=== PATIENT | male | born 1960 | race Hispanic/Latino ===

== ENCOUNTER 2022-05-01 08:48 | Inpatient (IN) | payer OTHER, SELFPAY ==
[2022-05-01] MEDS ORDERED: Rocuronium Bromide 10 MG/ML (10ML VIAL) ONE ×2 (08:51→11:39)
[2022-05-01] MEDS ORDERED: EPINEPHrine 1 MG/10 ML Abboject SYRINGE ONE ×3 (08:51→23:39)
[2022-05-01] MEDS ORDERED: hydrALAZINE 20 MG/ML VIAL SLOW IVP PRN (09:17)
[2022-05-01] MEDS ORDERED: TETANUS, DIPHTHERIA TOX,ADULT (TDVAX) 0.5 ML VIAL IM ONE (09:17)
[2022-05-01 09:21] LABS: Hemoglobin 15.5 g/dL (14.0-18.0); Mean Corpuscular HGB CONC 31.8 g/dL (32.0-36.0); Mean Corpuscular Hemoglobin 27.5 pg (27.0-31.0); Mean Corpuscular Volume 86.5 fL (78.0-98.0); Mean Platelet Volume 9.1 fL (7.4-10.4); Platelet Count 426 thou/uL (130-400); RBC Distribution Width 20.4 % (11.5-14.5); Red Blood Cell (RBC) Count 5.63 mill/uL (4.70-6.10)
[2022-05-01] MEDS ORDERED: Lidocaine 1% (PF) 30 ML VIAL ONE ×2 (09:27→16:20)
[2022-05-01] MEDS ORDERED: Heparin 10,000 UNITS/ 10 ML VIAL ONE (09:27)
[2022-05-01 09:29] LABS: INR-International Normal Ratio 1.4; PTT 46.5 sec (22.9-36.1); Prothrombin Time 17.6 sec (12.0-14.7)
[2022-05-01] MEDS ORDERED: Acetaminophen 325 MG TAB PO SCH (09:30)
[2022-05-01] MEDS ORDERED: Calcium Chloride 1 GM/10 ML Abboject SYRINGE ONE ×2 (09:33→09:34)
[2022-05-01] MEDS ORDERED: Ondansetron PF 4 MG/2 ML Vial ONE (09:37)
[2022-05-01 09:42] LABS: ALT (SGPT) 175 U/L (8-55); AST (SGOT) 259 U/L (5-34); Acetaminophen Less than 10.0 mcg/mL (10.0-30.0); Albumin 3.7 g/dL (3.4-4.8); Alcohol Less than 10 mg/dL (Less than 10); Alkaline Phosphatase 107 U/L (40-110); Anion Gap 14 mmol/L (10-20); BUN (Urea Nitrogen) 12 mg/dL (8.4-25.7); Bilirubin, Total 0.6 mg/dL (0.2-1.2); CK (CPK) 307 U/L (30-200); Calc. Creatinine Clearance 0 mL/min (70-130); Calcium 8.8 mg/dL (7.8-10.44); Carbon Dioxide 18 mmol/L (23-31); Chloride 108 mmol/L (98-107); Estimated GFR 84; Globulin 2.3 g/dL (2.4-3.5); Glucose 135 mg/dL (80-115); Potassium 3.4 mmol/L (3.5-5.1); Salicylate Less than 8.0 mg/dL (15.0-30.0); Sodium 137 mmol/L (136-145)
[2022-05-01 09:55] LABS: Bilirubin Negative (Negative); Blood, Urine 3+ (Negative); Clarity Clear (Clear); Glucose, Urine (Dipstick) Normal (Negative); Ketone, Urine Negative (Negative); Leukocyte Negative Leu/uL (Negative); Nitrite Negative (Negative); Protein, Urine (Dipstick) Negative (Neg-Trace); RBC/HPF Greater than 50 HPF (0-3); Specific Gravity, Urine 1.016 (1.002-1.036); Squamous Epithelial 0-3 HPF (0-3); Urobilinogen Normal mg/dL (Less than 2); pH, Urine 5.5 (5.0-9.0)
[2022-05-01 09:57] LABS: Bacteria/HPF 1+ HPF (None Seen); Sperm/HPF 2+ HPF (None Seen)
[2022-05-01 10:00] LABS: Amphetamine Not Detected (NotDetected); Barbiturates Screen Not Detected (NotDetected); Benzodiazepine Screen Not Detected (NotDetected); Cocaine Metabolite Screen Not Detected (NotDetected); Methadone Not Detected (NotDetected); Methamphetamine Not Detected (NotDetected); Opiate Screen Not Detected (NotDetected); Oxycodone Screen Not Detected (NotDetected); Phencyclidine (PCP) Not Detected (NotDetected); THC/Cannabinoid Screen Not Detected (NotDetected); Tricyclic Screen Not Detected (NotDetected)
[2022-05-01 10:24] LABS: Band 20 % (5-11); Eosinophils 8 % (0-10); Lymphocytes 34 % (21-51); MDiff Complete? YES; Metamyelocyte 4 % (0-0); Monocytes 2 % (0-10); Myelocyte 1 % (0-0); Neutrophil 24 % (42-75); Nucleated RBC 6 % (0); Platelet Morphology Comment Appears Increased; Polychromasia SLIGHT = 2-3 cells (100X) (0-2/hpf); Reactive Lymphocytes 4 % (0-10)
[2022-05-01] MEDS ORDERED: Midazolam HCl 2 mg/2 ml Vial ONE ×2 (10:36→23:26)
[2022-05-01] MEDS ORDERED: FENTANYL 500 MCG/10 ML VIAL 2,000 MCG in Sodium Chloride 0.9% 60 ML IV PRN (10:37)
[2022-05-01] MEDS ORDERED: Sodium Bicarb 50 MEQ/50 ML Abboject 8.4% SYRINGE IVP SCH (10:45)
[2022-05-01] MEDS ORDERED: Fentanyl 100 MCG/2 ML VIAL ONE (10:59)
[2022-05-01] MEDS ORDERED: Dexmedetomidine In 0.9 % NaCl 100 ML IVPB SCH (11:00)
[2022-05-01] MEDS ORDERED: Heparin 10,000 UNITS/1 ML VIAL 30,000 UNITS in Sodium Chloride 0.9% 1,000 ML FS SCH (11:15)
[2022-05-01] MEDS ORDERED: Phenylephrine 10 MG/ML VIAL ONE (11:28)
[2022-05-01] MEDS ORDERED: Fentanyl BOLUS 250 ML IVPB PRN (11:30)
[2022-05-01] MEDS ORDERED: Iopamidol-370 76% 500 ML 1 ML ONE (11:30)
[2022-05-01] MEDS ORDERED: DISCONTINUE PREVIOUS NARCOTIC PAIN MEDICATIONS AND BENZODIAZEPINES FS SCH (11:30)
[2022-05-01] MEDS ORDERED: Sodium Bicarb 50 MEQ/50 ML VIAL IVP SCH (11:30)
[2022-05-01] MEDS ORDERED: Midazolam HCl 5 mg/5 ml Vial ONE (11:35)
[2022-05-01 11:37] LABS: Lactic Acid 4.9 mmol/L (0.5-2.2)
[2022-05-01 11:49] LABS: Mean Corpuscular HGB CONC 32.3 g/dL (32.0-36.0); Mean Corpuscular Hemoglobin 29.3 pg (27.0-31.0); Mean Corpuscular Volume 90.7 fL (78.0-98.0); Platelet Count 326 thou/uL (130-400); RBC Distribution Width 15.9 % (11.5-14.5); Red Blood Cell (RBC) Count 3.74 mill/uL (4.70-6.10); White Blood Cell (WBC) Count 21.5 thou/uL (4.8-10.8)
[2022-05-01 11:51] LABS: INR-International Normal Ratio 1.7
[2022-05-01 11:52] LABS: PTT 62.6 sec (22.9-36.1)
[2022-05-01 11:53] LABS: Anion Gap 15 mmol/L (10-20); BUN (Urea Nitrogen) 13 mg/dL (8.4-25.7); Calc. Creatinine Clearance 0 mL/min (70-130); Calcium 10.9 mg/dL (7.8-10.44); Carbon Dioxide 19 mmol/L (23-31); Chloride 109 mmol/L (98-107); Estimated GFR 66; Glucose 315 mg/dL (80-115); Magnesium 1.9 mg/dL (1.6-2.6); Phosphorus 7.3 mg/dL (2.3-4.7); Potassium 3.6 mmol/L (3.5-5.1); Sodium 139 mmol/L (136-145)
[2022-05-01] MEDS ORDERED: Iopamidol 370 76% 50 ML VIAL FS ONE ×2 (11:57)
[2022-05-01] MEDS ORDERED: Norepinephrine 4 MG/4 ML VIAL ONE (12:04)
[2022-05-01] MEDS ORDERED: fentaNYL Citrate/PF 100 MCG/2 ML SYRINGE ONE (12:04)
[2022-05-01 12:23] LABS: Band 33 % (5-11); Burr Cells SLIGHT = 2-5 cells (100X) (0-1/hpf); Eosinophils 2 % (0-10); Giant Platelets SLIGHT; Lymphocytes 27 % (21-51); MDiff Complete? YES; Metamyelocyte 4 % (0-0); Monocytes 1 % (0-10); Myelocyte 4 % (0-0); Neutrophil 27 % (42-75); Nucleated RBC 14 % (0); Platelet Morphology Comment Appears Adequate; Polychromasia MODERATE = 3-4 cells (100X) (0-2/hpf)
[2022-05-01 13:57] LABS: Base Excess (BEa) -6.2 mEq/L (-2.0 to +3.0); CO2 Tension 48.1 mmHg (35.0-45.0); Calcium, Ionized (arterial) 1.31 mmol/L (1.12-1.30); Carboxyhemoglobin (COHb) 1.3 gm% (0.0-3.0); Hemoglobin (Hb) 13.9 g/dL (14.0-18.0); O2 Tension (PaO2), arterial 489.1 mmHg (> 80.0); Potassium - ABG Lab 3.53 mmol/L (3.70-5.30); pH, Arterial 7.26 (7.35-7.45)
[2022-05-01 13:59] LABS: ALV-art Gradient 163.775 mmHg (0-20); Puncture Site Arterial Line
[2022-05-01 14:00] LABS: Actual Bicarbonate (HCO3a) 18.3 mEq/L (22-28); Base Excess (BEa) -11.5 mEq/L (-2.0 to +3.0); Calcium, Ionized (arterial) 1.12 mmol/L (1.12-1.30); Carboxyhemoglobin (COHb) 0.1 gm% (0.0-3.0); Hemoglobin (Hb) 11.4 g/dL (14.0-18.0); O2 Tension (PaO2), arterial 361.3 mmHg (> 80.0); Potassium - ABG Lab 4.57 mmol/L (3.70-5.30)
[2022-05-01 14:01] LABS: CO2 Tension 60.2 mmHg (35.0-45.0)
[2022-05-01 14:18] LABS: Lactic Acid 3.9 mmol/L (0.5-2.2)
[2022-05-01 14:21] LABS: INR-International Normal Ratio 1.5; Prothrombin Time 18.3 sec (12.0-14.7)
[2022-05-01 14:22] LABS: PTT 50.1 sec (22.9-36.1)
[2022-05-01 14:30] LABS: ALT (SGPT) 82 U/L (8-55); AST (SGOT) 144 U/L (5-34); Albumin 2.8 g/dL (3.4-4.8); Alkaline Phosphatase 108 U/L (40-110); Anion Gap 13 mmol/L (10-20); BUN (Urea Nitrogen) 13 mg/dL (8.4-25.7); Bilirubin, Direct 0.2 mg/dL (0.1-0.3); Bilirubin, Total 0.5 mg/dL (0.2-1.2); CK (CPK) 594 U/L (30-200); Calc. Creatinine Clearance 0 mL/min (70-130); Calcium 9.6 mg/dL (7.8-10.44); Carbon Dioxide 20 mmol/L (23-31); Chloride 112 mmol/L (98-107); Estimated GFR 76; Glucose 172 mg/dL (80-115); Magnesium 1.8 mg/dL (1.6-2.6); Phosphorus 5.2 mg/dL (2.3-4.7); Potassium 3.5 mmol/L (3.5-5.1); Protein, Total 4.6 g/dL (5.8-8.1); Sodium 141 mmol/L (136-145)
[2022-05-01 14:53] LABS: Band 15 % (5-11); Eosinophils 5 % (0-10); Hemoglobin 13.6 g/dL (14.0-18.0); Lymphocytes 14 % (21-51); MDiff Complete? YES; Mean Corpuscular HGB CONC 33.5 g/dL (32.0-36.0); Mean Corpuscular Hemoglobin 29.5 pg (27.0-31.0); Mean Corpuscular Volume 88.2 fL (78.0-98.0); Mean Platelet Volume 8.6 fL (7.4-10.4); Monocytes 4 % (0-10); Neutrophil 54 % (42-75); Nucleated RBC 19 % (0); Platelet Count 247 thou/uL (130-400); Platelet Morphology Comment Appears Adequate; Polychromasia SLIGHT = 2-3 cells (100X) (0-2/hpf); RBC Distribution Width 16.6 % (11.5-14.5); Reactive Lymphocytes 6 % (0-10); White Blood Cell (WBC) Count 20.9 thou/uL (4.8-10.8)
[2022-05-01 16:17] LABS: Base Excess (BEa) -9.2 mEq/L (-2.0 to +3.0); CO2 Tension 49.5 mmHg (35.0-45.0); Calcium, Ionized (arterial) 1.29 mmol/L (1.12-1.30); Carboxyhemoglobin (COHb) 1.1 gm% (0.0-3.0); Hemoglobin (Hb) 15.2 g/dL (14.0-18.0); O2 Tension (PaO2), arterial 121.9 mmHg (> 80.0); Potassium - ABG Lab 3.79 mmol/L (3.70-5.30)
[2022-05-01 16:18] LABS: ALV-art Gradient 101.425 mmHg (0-20); Puncture Site Arterial Line
[2022-05-01] MEDS ORDERED: Albumin 5% 500 ML ONE (16:27)
[2022-05-01] MEDS ORDERED: NOREPINEPHRINE 8 MG/250 ML-D5W 250 ML ONE (16:30)
[2022-05-01] MEDS ORDERED: Sodium Chloride 0.9% 1,000 ML IV SCH (16:30)
[2022-05-01] MEDS: Fentanyl CADD 100 ML IV SCH (16:44)
[2022-05-01] MEDS ORDERED: Hydrocortisone Sod Succ/PF 100 mg/2 ml Vial IVP SCH ×3 (17:00→22:00)
[2022-05-01 17:13] LABS: Hemoglobin 13.9 g/dL (14.0-18.0); Mean Corpuscular Hemoglobin 29.2 pg (27.0-31.0); Mean Corpuscular Volume 88.4 fL (78.0-98.0); Mean Platelet Volume 9.9 fL (7.4-10.4); Platelet Count 218 thou/uL (130-400); RBC Distribution Width 17.8 % (11.5-14.5); Red Blood Cell (RBC) Count 4.74 mill/uL (4.70-6.10)
[2022-05-01 17:21] LABS: Band 13 % (5-11); Eosinophils 6 % (0-10); Lymphocytes 11 % (21-51); MDiff Complete? YES; Monocytes 2 % (0-10); Neutrophil 60 % (42-75); Nucleated RBC 32 % (0); Ovalocytes SLIGHT = 2-5 cells (100X) (0-1/hpf); Platelet Morphology Comment Appears Adequate; Polychromasia SLIGHT = 2-3 cells (100X) (0-2/hpf); Reactive Lymphocytes 6 % (0-10); White Blood Cell (WBC) Count 18.6 thou/uL (4.8-10.8)
[2022-05-01] MEDS: Sodium Chloride 0.9% 1,000 ML IV SCH ×2 (19:00→22:11)
[2022-05-01 19:17] LABS: Lactic Acid 4.8 mmol/L (0.5-2.2)
[2022-05-01 19:19] LABS: Anion Gap 17 mmol/L (10-20); BUN (Urea Nitrogen) 15 mg/dL (8.4-25.7); Calc. Creatinine Clearance 0 mL/min (70-130); Calcium 8.5 mg/dL (7.8-10.44); Carbon Dioxide 17 mmol/L (23-31); Chloride 114 mmol/L (98-107); Estimated GFR 52; Glucose 140 mg/dL (80-115); Magnesium 1.7 mg/dL (1.6-2.6); PTT 37.5 sec (22.9-36.1); Phosphorus 4.9 mg/dL (2.3-4.7); Potassium 3.7 mmol/L (3.5-5.1); Sodium 144 mmol/L (136-145)
[2022-05-01] MEDS ORDERED: Dextrose 50% Abboject 50 ML SYRINGE SLOW IVP PRN (19:25)
[2022-05-01] MEDS ORDERED: Insulin Regular 300 UNITS/3 ML VIAL SC PRN (19:25)
[2022-05-01] MEDS ORDERED: Dextrose 5% in Water 1,000 ML IV PRN (19:25)
[2022-05-01 19:31] LABS: INR-International Normal Ratio 1.5; Prothrombin Time 18.8 sec (12.0-14.7)
[2022-05-01] MEDS ORDERED: Potassium Chloride 20 MEQ in Premix Bag 1 BAG IVPB SCH (20:00)
[2022-05-01] MEDS ORDERED: Magnesium 2 GM/50 ML(in water) 2 GM in Premix Bag 1 BAG IVPB SCH (20:00)
[2022-05-01 20:06] LABS: Actual Bicarbonate (HCO3a) 16.8 mEq/L (22-28); Base Excess (BEa) -8.9 mEq/L (-2.0 to +3.0); CO2 Tension 35.1 mmHg (35.0-45.0); Calcium, Ionized (arterial) 1.13 mmol/L (1.12-1.30); Carboxyhemoglobin (COHb) 0.3 gm% (0.0-3.0); Hemoglobin (Hb) 10.2 g/dL (14.0-18.0); O2 Tension (PaO2), arterial 150.1 mmHg (> 80.0)
[2022-05-01 20:10] LABS: ALV-art Gradient 91.225 mmHg (0-20); Puncture Site ALINE
[2022-05-01] MEDS ORDERED: Lactated Ringer's 1,000 ML IV SCH ×2 (20:15→23:30)
[2022-05-01 20:58] LABS: Band 21 % (5-11); Eosinophils 8 % (0-10); Hemoglobin 9.9 g/dL (14.0-18.0); Lymphocytes 11 % (21-51); MDiff Complete? YES; Mean Corpuscular HGB CONC 32.4 g/dL (32.0-36.0); Mean Corpuscular Hemoglobin 28.5 pg (27.0-31.0); Mean Platelet Volume 9.8 fL (7.4-10.4); Monocytes 5 % (0-10); Myelocyte 1 % (0-0); Neutrophil 44 % (42-75); Nucleated RBC 42 % (0); Ovalocytes SLIGHT = 2-5 cells (100X) (0-1/hpf); Platelet Count 200 thou/uL (130-400); Platelet Morphology Comment Appears Adequate; RBC Distribution Width 17.1 % (11.5-14.5); Reactive Lymphocytes 8 % (0-10); Red Blood Cell (RBC) Count 3.48 mill/uL (4.70-6.10); White Blood Cell (WBC) Count 16.6 thou/uL (4.8-10.8)
[2022-05-01] MEDS: Famotidine/PF 20 mg/2ml Vial SLOW IVP SCH (21:14)
[2022-05-01 22:11] LABS: SARS-CoV-2 NAA Rapid Test Not Detected (NotDetected)
[2022-05-01] MEDS: NOREPINEPHRINE 8 MG/250 ML-D5W 250 ML IVPB SCH (22:12)
[2022-05-01] MEDS ORDERED: Sodium Bicarb 50 MEQ/50 ML VIAL ONE (23:38)
[2022-05-01 23:41] LABS: Actual Bicarbonate (HCO3a) 14.7 mEq/L (22-28); Base Excess (BEa) -13.1 mEq/L (-2.0 to +3.0); CO2 Tension 43.3 mmHg (35.0-45.0); Calcium, Ionized (arterial) 1.13 mmol/L (1.12-1.30); Carboxyhemoglobin (COHb) 0.2 gm% (0.0-3.0); Hemoglobin (Hb) 6.7 g/dL (14.0-18.0); O2 Tension (PaO2), arterial 307.5 mmHg (> 80.0); Potassium - ABG Lab 5.05 mmol/L (3.70-5.30)
[2022-05-01] MEDS ORDERED: Midazolam HCl 2 mg/2 ml Vial IVP SCH (23:45)
[2022-05-01 23:52] LABS: ALV-art Gradient 351.375 mmHg (0-20); Puncture Site ALINE; pH, Arterial 7.15 (7.35-7.45)
[2022-05-01] MEDS ORDERED: EPINEPHrine 4 MG in Dextrose 5% in Water 250 ML IV SCH (23:59)
[2022-05-02 00:13] LABS: Hemoglobin 7.5 g/dL (14.0-18.0); Mean Corpuscular HGB CONC 32.7 g/dL (32.0-36.0); Mean Corpuscular Hemoglobin 29.6 pg (27.0-31.0); Mean Corpuscular Volume 90.3 fL (78.0-98.0); Mean Platelet Volume 10.5 fL (7.4-10.4); Platelet Count 121 thou/uL (130-400); RBC Distribution Width 15.1 % (11.5-14.5); Red Blood Cell (RBC) Count 2.55 mill/uL (4.70-6.10)
[2022-05-02 00:24] LABS: INR-International Normal Ratio 1.9; Prothrombin Time 22.3 sec (12.0-14.7)
[2022-05-02] MEDS ORDERED: Calcium Chloride 1 GM/10 ML Abboject SYRINGE ONE ×2 (00:25→00:51)
[2022-05-02] MEDS ORDERED: Rocuronium Bromide 10 MG/ML (10ML VIAL) ONE (00:25)
[2022-05-02 00:36] LABS: Band 26 % (5-11); Differential Comment Blast-Like Cell(s); Eosinophils 7 % (0-10); Lymphocytes 6 % (21-51); MDiff Complete? YES; Monocytes 2 % (0-10); Myelocyte 2 % (0-0); Neutrophil 49 % (42-75); Nucleated RBC 35 % (0); Reactive Lymphocytes 6 % (0-10); Reflex for Review?? YES; White Blood Cell (WBC) Count 14.4 thou/uL (4.8-10.8)
[2022-05-02] MEDS ORDERED: Sodium Bicarb 50 MEQ/50 ML VIAL ONE (00:45)
[2022-05-02] MEDS: Hydrocortisone Sod Succ/PF 100 mg/2 ml Vial IVP SCH ×5 (01:45→23:06)
[2022-05-02 01:46] LABS: Lactic Acid 9.5 mmol/L (0.5-2.2)
[2022-05-02 01:48] LABS: ALT (SGPT) 78 U/L (8-55); AST (SGOT) 137 U/L (5-34); Albumin 2.2 g/dL (3.4-4.8); Alkaline Phosphatase 41 U/L (40-110); Anion Gap 19 mmol/L (10-20); BUN (Urea Nitrogen) 18 mg/dL (8.4-25.7); Bilirubin, Total 0.4 mg/dL (0.2-1.2); Calc. Creatinine Clearance 0 mL/min (70-130); Calcium 7.2 mg/dL (7.8-10.44); Carbon Dioxide 17 mmol/L (23-31); Chloride 113 mmol/L (98-107); Estimated GFR 42; Globulin 0.9 g/dL (2.4-3.5); Glucose 169 mg/dL (80-115); Magnesium 1.9 mg/dL (1.6-2.6); Phosphorus 6.2 mg/dL (2.3-4.7); Protein, Total 3.1 g/dL (5.8-8.1); Sodium 144 mmol/L (136-145)
[2022-05-02] MEDS ORDERED: Lidocaine 1% (PF) 30 ML VIAL ONE (02:36)
[2022-05-02] MEDS ORDERED: Heparin 10,000 UNITS/ 10 ML VIAL ONE (02:36)
[2022-05-02] MEDS ORDERED: Midazolam HCl 2 mg/2 ml Vial ONE (03:08)
[2022-05-02] MEDS ORDERED: Fentanyl 100 MCG/2 ML VIAL ONE (03:08)
[2022-05-02 04:35] LABS: Hemoglobin 9.7 g/dL (14.0-18.0); Mean Corpuscular HGB CONC 32.8 g/dL (32.0-36.0); Mean Corpuscular Hemoglobin 28.8 pg (27.0-31.0); Mean Corpuscular Volume 87.9 fL (78.0-98.0); Mean Platelet Volume 9.7 fL (7.4-10.4); Platelet Count 135 thou/uL (130-400); RBC Distribution Width 15.6 % (11.5-14.5); Red Blood Cell (RBC) Count 3.35 mill/uL (4.70-6.10); White Blood Cell (WBC) Count 11.7 thou/uL (4.8-10.8)
[2022-05-02 04:42] LABS: INR-International Normal Ratio 1.5
[2022-05-02 04:43] LABS: PTT 40.5 sec (22.9-36.1)
[2022-05-02 04:53] LABS: CK (CPK) 1682 U/L (30-200); Phosphorus 6.1 mg/dL (2.3-4.7)
[2022-05-02 04:54] LABS: Lactic Acid 4.8 mmol/L (0.5-2.2)
[2022-05-02 04:55] LABS: ALT (SGPT) 142 U/L (8-55); AST (SGOT) 254 U/L (5-34); Albumin 2.7 g/dL (3.4-4.8); Alkaline Phosphatase 45 U/L (40-110); Bilirubin, Direct 0.3 mg/dL (0.1-0.3); Bilirubin, Total 0.5 mg/dL (0.2-1.2); Protein, Total 4.2 g/dL (5.8-8.1)
[2022-05-02 04:58] LABS: Anion Gap 15 mmol/L (10-20); BUN (Urea Nitrogen) 18 mg/dL (8.4-25.7); Calc. Creatinine Clearance 0 mL/min (70-130); Calcium 8.4 mg/dL (7.8-10.44); Carbon Dioxide 20 mmol/L (23-31); Chloride 113 mmol/L (98-107); Estimated GFR 43; Glucose 152 mg/dL (80-115); Magnesium 1.9 mg/dL (1.6-2.6); Potassium 4.7 mmol/L (3.5-5.1); Sodium 143 mmol/L (136-145)
[2022-05-02 05:18] LABS: Band 46 % (5-11); Eosinophils 4 % (0-10); Large Platelets SLIGHT; Lymphocytes 6 % (21-51); MDiff Complete? YES; Metamyelocyte 1 % (0-0); Monocytes 1 % (0-10); Myelocyte 2 % (0-0); Neutrophil 40 % (42-75); Nucleated RBC 33 % (0); Platelet Morphology Comment Appears Adequate
[2022-05-02 07:18] LABS: Actual Bicarbonate (HCO3a) 22.6 mEq/L (22-28); Base Excess (BEa) -2.3 mEq/L (-2.0 to +3.0); CO2 Tension 39.3 mmHg (35.0-45.0); Calcium, Ionized (arterial) 1.16 mmol/L (1.12-1.30); Carboxyhemoglobin (COHb) 0.3 gm% (0.0-3.0); Hemoglobin (Hb) 10.6 g/dL (14.0-18.0); O2 Tension (PaO2), arterial 352.3 mmHg (> 80.0); Potassium - ABG Lab 4.52 mmol/L (3.70-5.30); pH, Arterial 7.38 (7.35-7.45)
[2022-05-02 07:21] LABS: ALV-art Gradient 311.575 mmHg (0-20); Puncture Site Arterial Line
[2022-05-02] MEDS: Sodium Chloride 0.9% 1,000 ML IV SCH (08:17)
[2022-05-02] MEDS ORDERED: Pantoprazole 40 MG VIAL IVP SCH (09:00)
[2022-05-02] MEDS: Famotidine/PF 20 mg/2ml Vial SLOW IVP SCH (09:50)
[2022-05-02] MEDS: Sodium Bicarbonate 150 MEQ in Dextrose 5% in Water 1,000 ML IV SCH ×2 (10:00→20:52)
[2022-05-02] MEDS ORDERED: Piperacillin/Tazobactam 3.375 GM in Sodium Chloride 0.9% 100 ML IVPB SCH (10:00)
[2022-05-02 10:15] LABS: INR-International Normal Ratio 1.4; PTT 35.5 sec (22.9-36.1); Prothrombin Time 17.3 sec (12.0-14.7)
[2022-05-02 10:18] LABS: Lactic Acid 2.3 mmol/L (0.5-2.2)
[2022-05-02 10:35] LABS: Anion Gap 14 mmol/L (10-20); BUN (Urea Nitrogen) 22 mg/dL (8.4-25.7); Calc. Creatinine Clearance 0 mL/min (70-130); Carbon Dioxide 21 mmol/L (23-31); Chloride 113 mmol/L (98-107); Estimated GFR 42; Glucose 109 mg/dL (80-115); Magnesium 1.8 mg/dL (1.6-2.6); Phosphorus 4.5 mg/dL (2.3-4.7); Potassium 4.7 mmol/L (3.5-5.1); Sodium 143 mmol/L (136-145)
[2022-05-02 10:42] LABS: Hemoglobin 9.7 g/dL (14.0-18.0); Mean Corpuscular HGB CONC 32.8 g/dL (32.0-36.0); Mean Corpuscular Hemoglobin 28.8 pg (27.0-31.0); Mean Corpuscular Volume 87.8 fL (78.0-98.0); Mean Platelet Volume 10.4 fL (7.4-10.4); Platelet Count 187 thou/uL (130-400); RBC Distribution Width 15.7 % (11.5-14.5); Red Blood Cell (RBC) Count 3.37 mill/uL (4.70-6.10); White Blood Cell (WBC) Count 9.3 thou/uL (4.8-10.8)
[2022-05-02 10:43] LABS: Band 63 % (5-11); Basophilic Stippling SLIGHT = 1-2 cells (100X) (None Seen); Large Platelets SLIGHT; Lymphocytes 9 % (21-51); MDiff Complete? YES; Metamyelocyte 2 % (0-0); Monocytes 3 % (0-10); Neutrophil 22 % (42-75); Nucleated RBC 42 % (0); Platelet Morphology Comment Appears Adequate; Polychromasia MODERATE = 3-4 cells (100X) (0-2/hpf); Tear Drops SLIGHT = 2-5 cells (100X) (0-1/hpf)
[2022-05-02] MEDS ORDERED: Iopamidol-370 76% 500 ML 1 ML ONE (11:58)
[2022-05-02] MEDS ORDERED: Magnesium 2 GM/50 ML(in water) 2 GM in Premix Bag 1 BAG IVPB SCH (13:00)
[2022-05-02] MEDS: Piperacillin/Tazobactam 3.375 GM in Sodium Chloride 0.9% 100 ML IVPB SCH ×2 (15:03→23:06)
[2022-05-02 16:27] LABS: INR-International Normal Ratio 1.5; Prothrombin Time 18.2 sec (12.0-14.7)
[2022-05-02 16:28] LABS: PTT 37.8 sec (22.9-36.1)
[2022-05-02 16:29] LABS: Lactic Acid 2.6 mmol/L (0.5-2.2)
[2022-05-02 16:32] LABS: Hemoglobin 8.6 g/dL (14.0-18.0); Mean Corpuscular HGB CONC 33.5 g/dL (32.0-36.0); Mean Corpuscular Hemoglobin 29.2 pg (27.0-31.0); Mean Corpuscular Volume 87.1 fL (78.0-98.0); Mean Platelet Volume 10.4 fL (7.4-10.4); Platelet Count 209 thou/uL (130-400); RBC Distribution Width 15.8 % (11.5-14.5); Red Blood Cell (RBC) Count 2.94 mill/uL (4.70-6.10); White Blood Cell (WBC) Count 7.6 thou/uL (4.8-10.8)
[2022-05-02 16:33] LABS: Band 37 % (5-11); Eosinophils 1 % (0-10); Lymphocytes 6 % (21-51); MDiff Complete? YES; Monocytes 4 % (0-10); Neutrophil 67 % (42-75); Nucleated RBC 74 % (0); Platelet Morphology Comment Appears Adequate; Polychromasia MODERATE = 3-4 cells (100X) (0-2/hpf); Reactive Lymphocytes 3 % (0-10)
[2022-05-02 16:39] LABS: Anion Gap 12 mmol/L (10-20); BUN (Urea Nitrogen) 26 mg/dL (8.4-25.7); Calc. Creatinine Clearance 0 mL/min (70-130); Calcium 8.1 mg/dL (7.8-10.44); Carbon Dioxide 24 mmol/L (23-31); Chloride 111 mmol/L (98-107); Estimated GFR 43; Glucose 131 mg/dL (80-115); Magnesium 2.4 mg/dL (1.6-2.6); Phosphorus 3.3 mg/dL (2.3-4.7); Potassium 4.3 mmol/L (3.5-5.1); Sodium 143 mmol/L (136-145)
[2022-05-02] MEDS: NOREPINEPHRINE 8 MG/250 ML-D5W 250 ML IVPB SCH (21:51)
[2022-05-02 22:44] LABS: Lactic Acid 2.2 mmol/L (0.5-2.2)
[2022-05-02 22:45] LABS: INR-International Normal Ratio 1.6; PTT 39.9 sec (22.9-36.1)
[2022-05-02 22:52] LABS: Anion Gap 12 mmol/L (10-20); BUN (Urea Nitrogen) 27 mg/dL (8.4-25.7); Calc. Creatinine Clearance 0 mL/min (70-130); Calcium 7.7 mg/dL (7.8-10.44); Carbon Dioxide 25 mmol/L (23-31); Chloride 111 mmol/L (98-107); Estimated GFR 40; Glucose 133 mg/dL (80-115); Magnesium 2.3 mg/dL (1.6-2.6); Phosphorus 2.4 mg/dL (2.3-4.7); Potassium 4.1 mmol/L (3.5-5.1); Sodium 144 mmol/L (136-145)
[2022-05-02 23:05] LABS: Anisocytosis SLIGHT = 6-15 cells (100X) (0-5/hpf); Band 32 % (5-11); Hemoglobin 8.1 g/dL (14.0-18.0); Lymphocytes 10 % (21-51); MDiff Complete? YES; Mean Corpuscular HGB CONC 33.2 g/dL (32.0-36.0); Mean Corpuscular Hemoglobin 28.9 pg (27.0-31.0); Mean Corpuscular Volume 87.1 fL (78.0-98.0); Monocytes 2 % (0-10); Neutrophil 54 % (42-75); Nucleated RBC 131 % (0); Platelet Count 248 thou/uL (130-400); RBC Distribution Width 16.2 % (11.5-14.5); Red Blood Cell (RBC) Count 2.79 mill/uL (4.70-6.10); White Blood Cell (WBC) Count 6.4 thou/uL (4.8-10.8)
[2022-05-02] MEDS ORDERED: Fentanyl CADD 100 ML ONE (23:54)
[2022-05-02] MEDS ORDERED: Sodium Phosphate 15 MMOL in Sodium Chloride 0.9% 250 ML 250 ML IVPB SCH (23:59)
[2022-05-03] MEDS: Fentanyl CADD 100 ML IV SCH ×2 (00:07→14:13)
[2022-05-03 06:01] LABS: INR-International Normal Ratio 1.6; PTT 38.7 sec (22.9-36.1)
[2022-05-03 06:20] LABS: Lactic Acid 2.4 mmol/L (0.5-2.2)
[2022-05-03 06:36] LABS: ALT (SGPT) 150 U/L (8-55); AST (SGOT) 313 U/L (5-34); Albumin 2.8 g/dL (3.4-4.8); Alkaline Phosphatase 50 U/L (40-110); Anion Gap 12 mmol/L (10-20); BUN (Urea Nitrogen) 28 mg/dL (8.4-25.7); Bilirubin, Direct 0.5 mg/dL (0.1-0.3); Bilirubin, Total 0.9 mg/dL (0.2-1.2); Calc. Creatinine Clearance 0 mL/min (70-130); Calcium 7.6 mg/dL (7.8-10.44); Carbon Dioxide 26 mmol/L (23-31); Chloride 110 mmol/L (98-107); Estimated GFR 39; Glucose 122 mg/dL (80-115); Magnesium 2.2 mg/dL (1.6-2.6); Potassium 3.7 mmol/L (3.5-5.1); Protein, Total 4.3 g/dL (5.8-8.1); Sodium 144 mmol/L (136-145)
[2022-05-03] MEDS: Hydrocortisone Sod Succ/PF 100 mg/2 ml Vial IVP SCH ×3 (06:42→18:17)
[2022-05-03 06:47] LABS: CK (CPK) 4296 U/L (30-200)
[2022-05-03 06:48] LABS: Band 71 % (5-11); Differential Comment Immature Cell(s); Hemoglobin 8.1 g/dL (14.0-18.0); Lymphocytes 2 % (21-51); MDiff Complete? YES; Mean Corpuscular HGB CONC 33.4 g/dL (32.0-36.0); Mean Corpuscular Hemoglobin 29.1 pg (27.0-31.0); Mean Corpuscular Volume 87.3 fL (78.0-98.0); Mean Platelet Volume 10.7 fL (7.4-10.4); Metamyelocyte 1 % (0-0); Monocytes 2 % (0-10); Myelocyte 2 % (0-0); Neutrophil 21 % (42-75); Nucleated RBC 52 % (0); Platelet Count 281 thou/uL (130-400); RBC Distribution Width 16.3 % (11.5-14.5); Red Blood Cell (RBC) Count 2.77 mill/uL (4.70-6.10)
[2022-05-03] MEDS: Piperacillin/Tazobactam 3.375 GM in Sodium Chloride 0.9% 100 ML IVPB SCH ×2 (07:06→15:31)
[2022-05-03 07:10] LABS: Actual Bicarbonate (HCO3a) 26.1 mEq/L (22-28); Base Excess (BEa) 4.1 mEq/L (-2.0 to +3.0); Calcium, Ionized (arterial) 1.02 mmol/L (1.12-1.30); Carboxyhemoglobin (COHb) 0.3 gm% (0.0-3.0); Hemoglobin (Hb) 8.3 g/dL (14.0-18.0); O2 Tension (PaO2), arterial 98.8 mmHg (> 80.0)
[2022-05-03 07:21] LABS: Puncture Site Arterial Line; pH, Arterial 7.57 (7.35-7.45)
[2022-05-03] MEDS: Sodium Bicarbonate 150 MEQ in Dextrose 5% in Water 1,000 ML IV SCH (07:46)
[2022-05-03] MEDS ORDERED: Calcium Chloride 1 GM/10 ML Abboject SYRINGE IVP SCH (08:00)
[2022-05-03] MEDS: Pantoprazole 40 MG VIAL IVP SCH (08:35)
[2022-05-03] MEDS ORDERED: Potassium Phosphate 30 MMOL in Sodium Chloride 0.9% 250 ML 250 ML IVPB SCH (10:15)
[2022-05-03] MEDS ORDERED: Dextrose 5 %-0.45 % NaCl 1,000 ML IV SCH (12:45)
[2022-05-03] MEDS: Dextrose 5 %-0.45 % NaCl 1,000 ML IV SCH ×2 (13:21→23:00)
[2022-05-03] MEDS ORDERED: Fentanyl CADD 100 ML ONE (13:59)
[2022-05-03 20:09] LABS: INR-International Normal Ratio 1.5; PTT 38.9 sec (22.9-36.1); Prothrombin Time 18.2 sec (12.0-14.7)
[2022-05-03 20:11] LABS: Lactic Acid 0.9 mmol/L (0.5-2.2)
[2022-05-03 20:20] LABS: Anion Gap 10 mmol/L (10-20); BUN (Urea Nitrogen) 30 mg/dL (8.4-25.7); CK (CPK) 2774 U/L (30-200); Calc. Creatinine Clearance 0 mL/min (70-130); Calcium 8.2 mg/dL (7.8-10.44); Carbon Dioxide 27 mmol/L (23-31); Chloride 111 mmol/L (98-107); Estimated GFR 43; Glucose 115 mg/dL (80-115); Magnesium 2.2 mg/dL (1.6-2.6); Phosphorus 3.8 mg/dL (2.3-4.7); Potassium 3.9 mmol/L (3.5-5.1); Sodium 144 mmol/L (136-145)
[2022-05-03 20:25] LABS: Hemoglobin 7.2 g/dL (14.0-18.0); MDiff Complete? YES; Mean Corpuscular HGB CONC 33.5 g/dL (32.0-36.0); Mean Corpuscular Hemoglobin 29.8 pg (27.0-31.0); Mean Corpuscular Volume 89.1 fL (78.0-98.0); Mean Platelet Volume 9.8 fL (7.4-10.4); Platelet Count 297 thou/uL (130-400); RBC Distribution Width 16.7 % (11.5-14.5); Red Blood Cell (RBC) Count 2.41 mill/uL (4.70-6.10); White Blood Cell (WBC) Count 7.5 thou/uL (4.8-10.8)
[2022-05-03 20:26] LABS: Band 35 % (5-11); Lymphocytes 6 % (21-51); Monocytes 2 % (0-10); Neutrophil 57 % (42-75); Nucleated RBC 70 % (0); Platelet Morphology Comment Appears Adequate; Polychromasia MODERATE = 3-4 cells (100X) (0-2/hpf)
[2022-05-04] MEDS ORDERED: Midazolam HCl 2 mg/2 ml Vial ONE (01:29)
[2022-05-04] MEDS: Piperacillin/Tazobactam 3.375 GM in Sodium Chloride 0.9% 100 ML IVPB SCH ×6 (01:37→23:42)
[2022-05-04] MEDS: Hydrocortisone Sod Succ/PF 100 mg/2 ml Vial IVP SCH ×5 (01:37→23:43)
[2022-05-04 01:43] LABS: Actual Bicarbonate (HCO3a) 26.4 mEq/L (22-28); Base Excess (BEa) 1.1 mEq/L (-2.0 to +3.0); Calcium, Ionized (arterial) 1.11 mmol/L (1.12-1.30); Carboxyhemoglobin (COHb) 0.1 gm% (0.0-3.0); Potassium - ABG Lab 3.84 mmol/L (3.70-5.30); pH, Arterial 7.39 (7.35-7.45)
[2022-05-04 01:49] LABS: O2 Tension (PaO2), arterial 47.6 mmHg (> 80.0); Puncture Site ALINE
[2022-05-04] MEDS ORDERED: Propofol 1,000 MG/100 ML VIAL IV ONE (01:52)
[2022-05-04] MEDS ORDERED: Ventilator Sedation Protocol 1 EACH FS SCH (02:00)
[2022-05-04] MEDS ORDERED: Midazolam HCl 2 mg/2 ml Vial SLOW IVP SCH (02:00)
[2022-05-04] MEDS ORDERED: Calcium Chloride 13.6 MEQ in Sodium Chloride 0.9% 100 ML IVPB SCH (02:30)
[2022-05-04] MEDS: Fentanyl CADD 100 ML IV SCH ×2 (03:56→22:40)
[2022-05-04 04:55] LABS: Hemoglobin 8.1 g/dL (14.0-18.0); Mean Corpuscular Hemoglobin 29.7 pg (27.0-31.0); Mean Platelet Volume 10.2 fL (7.4-10.4); Platelet Count 308 thou/uL (130-400); RBC Distribution Width 16.3 % (11.5-14.5); Red Blood Cell (RBC) Count 2.72 mill/uL (4.70-6.10)
[2022-05-04 05:07] LABS: INR-International Normal Ratio 1.4; PTT 37.8 sec (22.9-36.1); Prothrombin Time 17.1 sec (12.0-14.7)
[2022-05-04 05:10] LABS: Lactic Acid 0.8 mmol/L (0.5-2.2)
[2022-05-04 05:14] LABS: Anion Gap 9 mmol/L (10-20); BUN (Urea Nitrogen) 34 mg/dL (8.4-25.7); CK (CPK) 2695 U/L (30-200); Calc. Creatinine Clearance 0 mL/min (70-130); Calcium 8.8 mg/dL (7.8-10.44); Carbon Dioxide 28 mmol/L (23-31); Chloride 111 mmol/L (98-107); Estimated GFR 49; Glucose 122 mg/dL (80-115); Magnesium 2.2 mg/dL (1.6-2.6); Phosphorus 3.7 mg/dL (2.3-4.7); Potassium 3.9 mmol/L (3.5-5.1); Sodium 144 mmol/L (136-145)
[2022-05-04 05:15] LABS: ALT (SGPT) 133 U/L (8-55); AST (SGOT) 228 U/L (5-34); Alkaline Phosphatase 73 U/L (40-110); Bilirubin, Direct 0.7 mg/dL (0.1-0.3); Bilirubin, Total 1.2 mg/dL (0.2-1.2); Protein, Total 4.7 g/dL (5.8-8.1)
[2022-05-04 05:31] LABS: Band 47 % (5-11); Eosinophils 2 % (0-10); Large Platelets SLIGHT; Lymphocytes 2 % (21-51); MDiff Complete? YES; Myelocyte 1 % (0-0); Neutrophil 48 % (42-75); Nucleated RBC 53 % (0); Platelet Morphology Comment Appears Adequate; Polychromasia MODERATE = 3-4 cells (100X) (0-2/hpf); White Blood Cell (WBC) Count 10.5 thou/uL (4.8-10.8)
[2022-05-04] MEDS: Pantoprazole 40 MG VIAL IVP SCH (08:01)
[2022-05-04] MEDS: Dextrose 5 %-0.45 % NaCl 1,000 ML IV SCH ×2 (08:17→20:38)
[2022-05-04] MEDS ORDERED: Midazolam HCl 5 mg/5 ml Vial ONE (13:24)
[2022-05-04] MEDS ORDERED: fentaNYL Citrate/PF 100 MCG/2 ML SYRINGE ONE (13:25)
[2022-05-04] MEDS ORDERED: Rocuronium Bromide 10 MG/ML (10ML VIAL) ONE (13:44)
[2022-05-04] MEDS ORDERED: PHENYLEPHRINE-NS 100 MCG/ML 10 ML SYRINGE ONE (13:44)
[2022-05-04] MEDS ORDERED: Vecuronium 10 MG VIAL ONE (13:44)
[2022-05-04] MEDS: Propofol 1,000 MG/100 ML VIAL IV PRN (18:47)
[2022-05-05] MEDS: Dextrose 5 %-0.45 % NaCl 1,000 ML IV SCH (04:11)
[2022-05-05 05:12] LABS: ALT (SGPT) 124 U/L (8-55); AST (SGOT) 166 U/L (5-34); Albumin 2.9 g/dL (3.4-4.8); Alkaline Phosphatase 87 U/L (40-110); Anion Gap 8 mmol/L (10-20); BUN (Urea Nitrogen) 31 mg/dL (8.4-25.7); Bilirubin, Direct 0.7 mg/dL (0.1-0.3); Bilirubin, Total 1.2 mg/dL (0.2-1.2); CK (CPK) 1940 U/L (30-200); Calc. Creatinine Clearance 71 mL/min (70-130); Calcium 7.6 mg/dL (7.8-10.44); Carbon Dioxide 27 mmol/L (23-31); Chloride 113 mmol/L (98-107); Estimated GFR 62; Glucose 138 mg/dL (80-115); Magnesium 2.2 mg/dL (1.6-2.6); Potassium 3.7 mmol/L (3.5-5.1); Protein, Total 4.7 g/dL (5.8-8.1); Sodium 144 mmol/L (136-145)
[2022-05-05 05:27] LABS: INR-International Normal Ratio 1.3; PTT 36.8 sec (22.9-36.1)
[2022-05-05] MEDS: Hydrocortisone Sod Succ/PF 100 mg/2 ml Vial IVP SCH ×4 (06:17→23:14)
[2022-05-05 06:19] LABS: Anisocytosis SLIGHT = 6-15 cells (100X) (0-5/hpf); Band 47 % (5-11); Hemoglobin 8.6 g/dL (14.0-18.0); Lymphocytes 7 % (21-51); MDiff Complete? YES; Mean Corpuscular HGB CONC 32.1 g/dL (32.0-36.0); Mean Corpuscular Hemoglobin 29.3 pg (27.0-31.0); Mean Corpuscular Volume 91.2 fl (78.0-98.0); Mean Platelet Volume 10.3 fL (7.4-10.4); Monocytes 1 % (0-10); Neutrophil 45 % (42-75); Nucleated RBC 83 % (0); Platelet Count 359 thou/uL (130-400); Platelet Morphology Comment Appears Adequate; RBC Distribution Width 16.7 % (11.5-14.5); Red Blood Cell (RBC) Count 2.94 mill/uL (4.70-6.10); White Blood Cell (WBC) Count 10.7 thou/uL (4.8-10.8)
[2022-05-05] MEDS: Propofol 1,000 MG/100 ML VIAL IV PRN ×3 (06:44→20:21)
[2022-05-05] MEDS: Pantoprazole 40 MG VIAL IVP SCH (08:13)
[2022-05-05] MEDS: Piperacillin/Tazobactam 3.375 GM in Sodium Chloride 0.9% 100 ML IVPB SCH ×3 (08:13→23:13)
[2022-05-05] MEDS ORDERED: Furosemide 20 MG/2 ML VIAL SLOW IVP SCH ×2 (08:30→16:00)
[2022-05-05 08:34] LABS: Actual Bicarbonate (HCO3a) 26.1 mEq/L (22-28); Base Excess (BEa) 2.3 mEq/L (-2.0 to +3.0); CO2 Tension 37.6 mmHg (35.0-45.0); Calcium, Ionized (arterial) 1.03 mmol/L (1.12-1.30); Carboxyhemoglobin (COHb) 0.3 gm% (0.0-3.0); Hemoglobin (Hb) 9.1 g/dL (14.0-18.0); O2 Tension (PaO2), arterial 63.2 mmHg (> 80.0); Potassium - ABG Lab 3.53 mmol/L (3.70-5.30); pH, Arterial 7.46 (7.35-7.45)
[2022-05-05 08:35] LABS: Puncture Site Arterial Line
[2022-05-05] MEDS ORDERED: Fentanyl CADD 100 ML ONE (11:49)
[2022-05-05] MEDS: Fentanyl CADD 100 ML IV SCH (12:02)
[2022-05-05 17:46] LABS: Anion Gap 11 mmol/L (10-20); BUN (Urea Nitrogen) 32 mg/dL (8.4-25.7); Calc. Creatinine Clearance 62 mL/min (70-130); Calcium 7.4 mg/dL (7.8-10.44); Carbon Dioxide 27 mmol/L (23-31); Chloride 111 mmol/L (98-107); Estimated GFR 58; Glucose 118 mg/dL (80-115); Magnesium 2.2 mg/dL (1.6-2.6); Phosphorus 2.8 mg/dL (2.3-4.7); Potassium 3.4 mmol/L (3.5-5.1); Sodium 146 mmol/L (136-145)
[2022-05-05] MEDS ORDERED: Potassium Chloride 40 MEQ in Premix Bag 1 BAG IVPB SCH (18:00)
[2022-05-05] MEDS: Potassium Chloride 20 MEQ in Premix Bag 1 BAG IVPB SCH ×2 (18:50→20:22)
[2022-05-06] MEDS: Fentanyl CADD 100 ML IV SCH ×3 (01:37→23:08)
[2022-05-06 05:28] LABS: Band 26 % (5-11); Hemoglobin 8.8 g/dL (14.0-18.0); Large Platelets SLIGHT; Lymphocytes 1 % (21-51); MDiff Complete? YES; Mean Corpuscular HGB CONC 31.6 g/dL (32.0-36.0); Mean Corpuscular Hemoglobin 29.3 pg (27.0-31.0); Mean Corpuscular Volume 92.9 fl (78.0-98.0); Mean Platelet Volume 10.2 fL (7.4-10.4); Monocytes 1 % (0-10); Neutrophil 72 % (42-75); Nucleated RBC 34 % (0); Platelet Count 435 thou/uL (130-400); RBC Distribution Width 16.8 % (11.5-14.5); Red Blood Cell (RBC) Count 3.01 mill/uL (4.70-6.10); Toxic Granulation SLIGHT; White Blood Cell (WBC) Count 17.2 thou/uL (4.8-10.8)
[2022-05-06 06:11] LABS: Anion Gap 10 mmol/L (10-20); BUN (Urea Nitrogen) 34 mg/dL (8.4-25.7); CK (CPK) 1458 U/L (30-200); Calc. Creatinine Clearance 64 mL/min (70-130); Calcium 7.5 mg/dL (7.8-10.44); Carbon Dioxide 29 mmol/L (23-31); Chloride 112 mmol/L (98-107); Estimated GFR 58; Glucose 126 mg/dL (80-115); Magnesium 2.4 mg/dL (1.6-2.6); Phosphorus 2.3 mg/dL (2.3-4.7); Potassium 3.7 mmol/L (3.5-5.1); Sodium 147 mmol/L (136-145)
[2022-05-06] MEDS: Hydrocortisone Sod Succ/PF 100 mg/2 ml Vial IVP SCH (06:17)
[2022-05-06] MEDS: Piperacillin/Tazobactam 3.375 GM in Sodium Chloride 0.9% 100 ML IVPB SCH (08:37)
[2022-05-06] MEDS: Propofol 1,000 MG/100 ML VIAL IV PRN ×3 (08:38→20:48)
[2022-05-06] MEDS: Piperacillin/Tazobactam 3.375 GM in Dextrose 5% in Water 100 ML IVPB SCH ×2 (10:34→15:34)
[2022-05-06] MEDS: Pantoprazole 40 MG VIAL IVP SCH (10:34)
[2022-05-06] MEDS ORDERED: Fentanyl CADD 100 ML ONE (11:52)
[2022-05-06 14:39] LABS: Band 18 % (5-11); Hemoglobin 8.8 g/dL (14.0-18.0); Lymphocytes 4 % (21-51); MDiff Complete? YES; Mean Corpuscular Hemoglobin 29.1 pg (27.0-31.0); Mean Corpuscular Volume 91.2 fl (78.0-98.0); Monocytes 2 % (0-10); Myelocyte 2 % (0-0); Neutrophil 74 % (42-75); Nucleated RBC 62 % (0); Ovalocytes SLIGHT = 2-5 cells (100X) (0-1/hpf); Platelet Count 454 thou/uL (130-400); Platelet Morphology Comment Appears Increased; Polychromasia SLIGHT = 2-3 cells (100X) (0-2/hpf); Red Blood Cell (RBC) Count 3.02 mill/uL (4.70-6.10); White Blood Cell (WBC) Count 15.1 thou/uL (4.8-10.8)
[2022-05-06] MEDS: Senokot S 8.6-50 MG TAB PO SCH (20:48)
[2022-05-06] MEDS ORDERED: Dextrose 5 %-0.45 % NaCl 1,000 ML IV SCH (23:00)
[2022-05-07] MEDS: Piperacillin/Tazobactam 3.375 GM in Dextrose 5% in Water 100 ML IVPB SCH ×3 (01:29→16:28)
[2022-05-07] MEDS: Propofol 1,000 MG/100 ML VIAL IV PRN ×4 (03:38→21:37)
[2022-05-07 04:59] LABS: INR-International Normal Ratio 1.2; Prothrombin Time 15.1 sec (12.0-14.7)
[2022-05-07 05:00] LABS: PTT 36.6 sec (22.9-36.1)
[2022-05-07 05:07] LABS: Anion Gap 11 mmol/L (10-20); BUN (Urea Nitrogen) 32 mg/dL (8.4-25.7); Calc. Creatinine Clearance 81 mL/min (70-130); Calcium 7.7 mg/dL (7.8-10.44); Carbon Dioxide 29 mmol/L (23-31); Chloride 113 mmol/L (98-107); Estimated GFR 77; Glucose 101 mg/dL (80-115); Magnesium 2.7 mg/dL (1.6-2.6); Potassium 3.5 mmol/L (3.5-5.1); Sodium 149 mmol/L (136-145)
[2022-05-07 06:08] LABS: Band 22 % (5-11); Eosinophils 1 % (0-10); Hemoglobin 9.6 g/dL (14.0-18.0); Lymphocytes 3 % (21-51); MDiff Complete? YES; Mean Corpuscular HGB CONC 31.7 g/dL (32.0-36.0); Mean Corpuscular Hemoglobin 29.8 pg (27.0-31.0); Mean Platelet Volume 9.9 fL (7.4-10.4); Monocytes 2 % (0-10); Myelocyte 1 % (0-0); Neutrophil 71 % (42-75); Nucleated RBC 47 % (0); Platelet Count 498 thou/uL (130-400); RBC Distribution Width 17.1 % (11.5-14.5); Red Blood Cell (RBC) Count 3.22 mill/uL (4.70-6.10); White Blood Cell (WBC) Count 18.3 thou/uL (4.8-10.8)
[2022-05-07 07:57] LABS: Actual Bicarbonate (HCO3a) 29.8 mEq/L (22-28); Base Excess (BEa) 2.7 mEq/L (-2.0 to +3.0); CO2 Tension 58.8 mmHg (35.0-45.0); Carboxyhemoglobin (COHb) 0.2 gm% (0.0-3.0); Hemoglobin (Hb) 10.6 g/dL (14.0-18.0); Potassium - ABG Lab 3.64 mmol/L (3.70-5.30); pH, Arterial 7.32 (7.35-7.45)
[2022-05-07 07:59] LABS: O2 Tension (PaO2), arterial 58.7 mmHg (> 80.0)
[2022-05-07 08:00] LABS: Puncture Site Arterial Line
[2022-05-07] MEDS: Pantoprazole 40 MG VIAL IVP SCH (08:00)
[2022-05-07] MEDS: Polyethylene Glycol 3350 17 GM Packet PO SCH (08:00)
[2022-05-07] MEDS: Senokot S 8.6-50 MG TAB PO SCH ×2 (08:00→20:15)
[2022-05-07] MEDS ORDERED: Midazolam HCl 5 mg/ml Vial SLOW IVP SCH (08:30)
[2022-05-07] MEDS ORDERED: Vecuronium 10 MG VIAL IV SCH (08:30)
[2022-05-07] MEDS ORDERED: Enoxaparin Sodium 40 MG/0.4 ML SYRINGE SC SCH (09:00)
[2022-05-07] MEDS: WATER IVPB SCH ×3 (10:07→20:15)
[2022-05-07] MEDS: DEXMEDETOMIDINE IVPB SCH ×3 (10:07→20:15)
[2022-05-07] MEDS: DEXTROSE 5% IVPB SCH ×3 (10:07→20:15)
[2022-05-07] MEDS: Fentanyl CADD 100 ML IV SCH (11:33)
[2022-05-07] MEDS ORDERED: CEFAZOLIN 2 GM in Dextrose 5% in Water 100 ML IVPB SCH (12:00)
[2022-05-07] MEDS ORDERED: Calcium Chloride 1 GM/10 ML Abboject SYRINGE IVP SCH (22:00)
[2022-05-07] MEDS ORDERED: Ipratropium Bromide 2.5 ml Neb NEB SCH (22:30)
[2022-05-08] MEDS: Fentanyl CADD 100 ML IV SCH ×3 (00:23→23:52)
[2022-05-08] MEDS: WATER IVPB SCH ×3 (00:23→10:04)
[2022-05-08] MEDS: DEXMEDETOMIDINE IVPB SCH ×3 (00:23→10:04)
[2022-05-08] MEDS: DEXTROSE 5% IVPB SCH ×3 (00:23→10:04)
[2022-05-08 05:14] LABS: Anion Gap 10 mmol/L (10-20); BUN (Urea Nitrogen) 36 mg/dL (8.4-25.7); Calc. Creatinine Clearance 63 mL/min (70-130); Calcium 8.8 mg/dL (7.8-10.44); Carbon Dioxide 29 mmol/L (23-31); Chloride 112 mmol/L (98-107); Estimated GFR 62; Glucose 108 mg/dL (80-115); Magnesium 2.6 mg/dL (1.6-2.6); Phosphorus 2.4 mg/dL (2.3-4.7); Potassium 3.9 mmol/L (3.5-5.1); Sodium 147 mmol/L (136-145)
[2022-05-08] MEDS: Propofol 1,000 MG/100 ML VIAL IV PRN (05:30)
[2022-05-08 06:00] LABS: Anisocytosis SLIGHT = 6-15 cells (100X) (0-5/hpf); Band 26 % (5-11); Eosinophils 4 % (0-10); Hemoglobin 9.3 g/dL (14.0-18.0); Hypochromia SLIGHT = 6-15 cells (100X) (0-5/hpf); Large Platelets SLIGHT; Lymphocytes 3 % (21-51); MDiff Complete? YES; Mean Corpuscular HGB CONC 31.5 g/dL (32.0-36.0); Mean Corpuscular Hemoglobin 29.8 pg (27.0-31.0); Mean Corpuscular Volume 94.8 fl (78.0-98.0); Mean Platelet Volume 10.5 fL (7.4-10.4); Monocytes 1 % (0-10); Myelocyte 2 % (0-0); Neutrophil 63 % (42-75); Nucleated RBC 75 % (0); Platelet Count 586 thou/uL (130-400); Platelet Morphology Comment Appears Increased; Polychromasia SLIGHT = 2-3 cells (100X) (0-2/hpf); Promyelocytes 1 % (0-0); RBC Distribution Width 17.7 % (11.5-14.5); Red Blood Cell (RBC) Count 3.13 mill/uL (4.70-6.10); Tear Drops SLIGHT = 2-5 cells (100X) (0-1/hpf); White Blood Cell (WBC) Count 31.4 thou/uL (4.8-10.8)
[2022-05-08] MEDS ORDERED: Dextrose 5 %-0.45 % NaCl 1,000 ML IV SCH (06:15)
[2022-05-08] MEDS ORDERED: Meropenem 1 GM in Sodium Chloride 0.9% 100 ML IVPB SCH (08:15)
[2022-05-08] MEDS ORDERED: [UNRECOGNIZED DRUG - REMARK] FS SCH (08:15)
[2022-05-08 08:18] LABS: Actual Bicarbonate (HCO3a) 28.4 mEq/L (22-28); Base Excess (BEa) 2.7 mEq/L (-2.0 to +3.0); CO2 Tension 49.4 mmHg (35.0-45.0); Calcium, Ionized (arterial) 1.19 mmol/L (1.12-1.30); Carboxyhemoglobin (COHb) 0.7 gm% (0.0-3.0); Hemoglobin (Hb) 9.9 g/dL (14.0-18.0); Potassium - ABG Lab 3.98 mmol/L (3.70-5.30); pH, Arterial 7.38 (7.35-7.45)
[2022-05-08 08:21] LABS: O2 Tension (PaO2), arterial 48.1 mmHg (> 80.0); Puncture Site Arterial Line
[2022-05-08] MEDS: VANCOMYCIN 1.25 GM/250 ML BAG 1.25 GM in Premix Bag 1 BAG IVPB SCH (08:43)
[2022-05-08] MEDS: Pantoprazole 40 MG VIAL IVP SCH (08:44)
[2022-05-08] MEDS: Senokot S 8.6-50 MG TAB PO SCH ×2 (08:44→21:22)
[2022-05-08] MEDS: Polyethylene Glycol 3350 17 GM Packet PO SCH (08:44)
[2022-05-08] MEDS ORDERED: Enoxaparin Sodium 40 MG/0.4 ML SYRINGE SC SCH (09:00)
[2022-05-08] MEDS ORDERED: Acetaminophen 650 MG/20.3 ML UDCUP PER TUBE PRN (12:43)
[2022-05-08] MEDS ORDERED: Bisacodyl 10 MG SUPP PR PRN (14:12)
[2022-05-08] MEDS: Fluconazole In NaCl,Iso-Osm 200 MG in Premix Bag 1 BAG IVPB SCH (14:47)
[2022-05-08] MEDS ORDERED: Dexmedetomidine 1,000 MCG in Dextrose 5% in Water 240 ML IVPB SCH (15:00)
[2022-05-08] MEDS: Meropenem 1 GM in Sodium Chloride 0.9% 100 ML IVPB SCH ×2 (16:13→23:58)
[2022-05-08 18:48] LABS: Anion Gap 11 mmol/L (10-20); BUN (Urea Nitrogen) 46 mg/dL (8.4-25.7); CK (CPK) 362 U/L (30-200); Calc. Creatinine Clearance 53 mL/min (70-130); Calcium 8.2 mg/dL (7.8-10.44); Carbon Dioxide 25 mmol/L (23-31); Chloride 111 mmol/L (98-107); Estimated GFR 50; Glucose 122 mg/dL (80-115); Sodium 143 mmol/L (136-145)
[2022-05-08 19:10] LABS: Lactic Acid 1.2 mmol/L (0.5-2.2)
[2022-05-08] MEDS ORDERED: Furosemide 40 MG/4 ML VIAL SLOW IVP SCH (20:15)
[2022-05-08] MEDS ORDERED: Fentanyl CADD 100 ML ONE (23:34)
[2022-05-09] MEDS: Propofol 1,000 MG/100 ML VIAL IV PRN (01:54)
[2022-05-09] MEDS ORDERED: Ondansetron PF 4 MG/2 ML Vial IVP PRN (02:51)
[2022-05-09 04:19] LABS: ALT (SGPT) 49 U/L (8-55); AST (SGOT) 57 U/L (5-34); Albumin 2.7 g/dL (3.4-4.8); Alkaline Phosphatase 130 U/L (40-110); Anion Gap 12 mmol/L (10-20); BUN (Urea Nitrogen) 54 mg/dL (8.4-25.7); Bilirubin, Direct 3.8 mg/dL (0.1-0.3); Bilirubin, Total 5.2 mg/dL (0.2-1.2); Calc. Creatinine Clearance 42 mL/min (70-130); Calcium 8.1 mg/dL (7.8-10.44); Carbon Dioxide 26 mmol/L (23-31); Chloride 111 mmol/L (98-107); Estimated GFR 37; Glucose 116 mg/dL (80-115); Magnesium 2.6 mg/dL (1.6-2.6); Phosphorus 3.6 mg/dL (2.3-4.7); Potassium 4.3 mmol/L (3.5-5.1); Sodium 145 mmol/L (136-145)
[2022-05-09 04:32] LABS: Hemoglobin 9.3 g/dL (14.0-18.0); Mean Corpuscular HGB CONC 30.5 g/dL (32.0-36.0); Mean Corpuscular Hemoglobin 27.9 pg (27.0-31.0); Mean Corpuscular Volume 91.5 fl (78.0-98.0); Mean Platelet Volume 10.6 fL (7.4-10.4); Platelet Count 706 thou/uL (130-400); RBC Distribution Width 23.3 % (11.5-14.5); Red Blood Cell (RBC) Count 3.33 mill/uL (4.70-6.10); White Blood Cell (WBC) Count 18.1 thou/uL (4.8-10.8)
[2022-05-09 04:33] LABS: Band 40 % (5-11); Eosinophils 1 % (0-10); Hypochromia SLIGHT = 6-15 cells (100X) (0-5/hpf); Lymphocytes 7 % (21-51); MDiff Complete? YES; Monocytes 1 % (0-10); Neutrophil 51 % (42-75); Nucleated RBC 61 % (0); Platelet Morphology Comment Appears Increased
[2022-05-09] MEDS ORDERED: Sodium Bicarbonate 100 MEQ in Dextrose 5% in Water 1,000 ML IV SCH (05:30)
[2022-05-09 06:00] LABS: Lactic Acid 0.8 mmol/L (0.5-2.2)
[2022-05-09] MEDS ORDERED: NOREPINEPHRINE 8 MG/250 ML-D5W 250 ML ONE (07:01)
[2022-05-09 07:03] LABS: Actual Bicarbonate (HCO3a) 27.3 mEq/L (22-28); Base Excess (BEa) 0.3 mEq/L (-2.0 to +3.0); CO2 Tension 56.1 mmHg (35.0-45.0); Calcium, Ionized (arterial) 1.14 mmol/L (1.12-1.30); Carboxyhemoglobin (COHb) 0.2 gm% (0.0-3.0); O2 Tension (PaO2), arterial 89.4 mmHg (> 80.0); Potassium - ABG Lab 4.38 mmol/L (3.70-5.30); pH, Arterial 7.31 (7.35-7.45)
[2022-05-09 07:05] LABS: ALV-art Gradient 553.475 mmHg (0-20); Puncture Site RRA
[2022-05-09] MEDS ORDERED: Albumin 25% 25 GM/100 ML BOT IVPB SCH (08:00)
[2022-05-09] MEDS: Heparin 5,000 UNITS/ML VIAL SC SCH ×2 (08:42→20:15)
[2022-05-09] MEDS: Pantoprazole 40 MG VIAL IVP SCH (08:43)
[2022-05-09] MEDS: NOREPINEPHRINE 8 MG/250 ML-D5W 250 ML IVPB SCH ×2 (08:46→23:24)
[2022-05-09] MEDS: Senokot S 8.6-50 MG TAB PO SCH ×2 (10:09→20:15)
[2022-05-09] MEDS: Polyethylene Glycol 3350 17 GM Packet PO SCH (10:09)
[2022-05-09] MEDS: Fleet Enema 133 ML BOT PR SCH (10:10)
[2022-05-09] MEDS ORDERED: Fentanyl CADD 100 ML ONE ×2 (10:31→20:06)
[2022-05-09] MEDS: Fentanyl CADD 100 ML IV SCH ×2 (10:40→20:16)
[2022-05-09] MEDS: VANCOMYCIN 1.25 GM/250 ML BAG 1.25 GM in Premix Bag 1 BAG IVPB SCH (10:41)
[2022-05-09] MEDS: Meropenem 1 GM in Sodium Chloride 0.9% 100 ML IVPB SCH (12:13)
[2022-05-09] MEDS ORDERED: Sodium Chloride 0.9% 500 ML IV SCH (13:00)
[2022-05-09] MEDS: Fluconazole In NaCl,Iso-Osm 200 MG in Premix Bag 1 BAG IVPB SCH (14:57)
[2022-05-09] MEDS ORDERED: Refresh Lacri-lube Opth Oint 7 GM TUBE FS PRN (16:44)
[2022-05-09] MEDS ORDERED: Refresh Lacri-lube Opth Oint 7 GM TUBE EA EYE PRN (17:00)
[2022-05-09] MEDS: MINERAL OIL/WHITE PETROLATUM 3.5 GM TUBE EA EYE PRN (17:16)
[2022-05-09] MEDS: Albumin 25% 25 GM/100 ML BOT IVPB SCH (19:32)
[2022-05-09] MEDS ORDERED: Calcium Chloride 1 GM/10 ML Abboject SYRINGE ONE ×3 (21:08→21:14)
[2022-05-09] MEDS: Albumin 5% 500 ML ONE (21:14)
[2022-05-09] MEDS: EPINEPHrine 4 MG in Dextrose 5% in Water 250 ML IV SCH (21:22)
[2022-05-09] MEDS ORDERED: Rocuronium Bromide 50 MG/5 ML VIAL ONE (21:41)
[2022-05-09] MEDS ORDERED: Sodium Chloride 0.9% 1,000 ML IV SCH (21:45)
[2022-05-09] MEDS ORDERED: Hydrocortisone Sod Succ/PF 100 mg/2 ml Vial IVP SCH (21:45)
[2022-05-09] MEDS ORDERED: Rocuronium Bromide 50 MG/5 ML VIAL IVP SCH (21:45)
[2022-05-09] MEDS ORDERED: Calcium Chloride 1 GM/10 ML Abboject SYRINGE IVP SCH (21:45)
[2022-05-09 21:55] LABS: Actual Bicarbonate (HCO3a) 24.1 mEq/L (22-28); Base Excess (BEa) -4.8 mEq/L (-2.0 to +3.0); Calcium, Ionized (arterial) 1.28 mmol/L (1.12-1.30); Carboxyhemoglobin (COHb) 0.9 gm% (0.0-3.0); Hemoglobin (Hb) 8.3 g/dL (14.0-18.0); O2 Tension (PaO2), arterial 100.3 mmHg (> 80.0)
[2022-05-09 21:56] LABS: pH, Arterial 7.16 (7.35-7.45)
[2022-05-09 21:57] LABS: CO2 Tension 69.2 mmHg (35.0-45.0); Puncture Site ART LINE
[2022-05-09 21:58] LABS: Hemoglobin 8.2 g/dL (14.0-18.0); Mean Corpuscular HGB CONC 28.8 g/dL (32.0-36.0); Mean Corpuscular Hemoglobin 27.2 pg (27.0-31.0); Mean Corpuscular Volume 94.4 fl (78.0-98.0); Mean Platelet Volume 10.9 fL (7.4-10.4); Platelet Count 595 thou/uL (130-400); RBC Distribution Width 23.9 % (11.5-14.5); Red Blood Cell (RBC) Count 3.04 mill/uL (4.70-6.10)
[2022-05-09] MEDS ORDERED: Midazolam HCl 2 mg/2 ml Vial SLOW IVP SCH (22:00)
[2022-05-09 22:04] LABS: Anion Gap 17 mmol/L (10-20); BUN (Urea Nitrogen) 78 mg/dL (8.4-25.7); Calc. Creatinine Clearance 29 mL/min (70-130); Calcium 8.3 mg/dL (7.8-10.44); Carbon Dioxide 23 mmol/L (23-31); Chloride 111 mmol/L (98-107); Estimated GFR 23; Glucose 109 mg/dL (80-115); Potassium 5.1 mmol/L (3.5-5.1); Sodium 146 mmol/L (136-145)
[2022-05-09] MEDS ORDERED: Dextrose 5 %-0.45 % NaCl 1,000 ML IV SCH ×2 (22:15→22:30)
[2022-05-09] MEDS ORDERED: Rocuronium Bromide 50 MG/5 ML VIAL IVP PRN (22:19)
[2022-05-09 22:25] LABS: Band 65 % (5-11); Hypochromia MODERATE=16-30 cells (100X) (0-5/hpf); Lymphocytes 3 % (21-51); MDiff Complete? YES; Myelocyte 3 % (0-0); Neutrophil 29 % (42-75); Nucleated RBC 68 % (0); Platelet Morphology Comment Appears Increased; Polychromasia MODERATE = 3-4 cells (100X) (0-2/hpf)
[2022-05-09 22:27] LABS: White Blood Cell (WBC) Count 17.9 thou/uL (4.8-10.8)
[2022-05-09] MEDS: Sodium Bicarbonate 140 MEQ in Dextrose 5% in Water 1,000 ML IV SCH (22:55)
[2022-05-09] MEDS ORDERED: Midazolam HCl 2 mg/2 ml Vial SLOW IVP PRN (23:01)
[2022-05-10] MEDS: Albumin 5% 500 ML ONE (00:06)
[2022-05-10] MEDS ORDERED: Sodium Chloride 0.9% 1,000 ML IV SCH (00:15)
[2022-05-10] MEDS: Albumin 25% 25 GM/100 ML BOT IVPB SCH ×2 (00:17→05:48)
[2022-05-10] MEDS: Meropenem 1 GM in Sodium Chloride 0.9% 100 ML IVPB SCH ×3 (00:17→23:56)
[2022-05-10 01:59] VITALS: BP 129/93
[2022-05-10 02:32] LABS: INR-International Normal Ratio 1.4; Prothrombin Time 17.3 sec (12.0-14.7)
[2022-05-10 02:43] LABS: Lactic Acid 1.6 mmol/L (0.5-2.2)
[2022-05-10 02:55] LABS: Anisocytosis MODERATE=16-30 cells (100X) (0-5/hpf); Band 70 % (5-11); Hemoglobin 7.8 g/dL (14.0-18.0); Hypochromia MODERATE=16-30 cells (100X) (0-5/hpf); MDiff Complete? YES; Mean Corpuscular HGB CONC 28.1 g/dL (32.0-36.0); Mean Corpuscular Hemoglobin 26.3 pg (27.0-31.0); Mean Corpuscular Volume 93.5 fl (78.0-98.0); Mean Platelet Volume 10.5 fL (7.4-10.4); Monocytes 1 % (0-10); Neutrophil 28 % (42-75); Nucleated RBC 47 % (0); Platelet Count 664 thou/uL (130-400); Platelet Morphology Comment Appears Increased; Polychromasia MODERATE = 3-4 cells (100X) (0-2/hpf); RBC Distribution Width 23.5 % (11.5-14.5); Red Blood Cell (RBC) Count 2.96 mill/uL (4.70-6.10); White Blood Cell (WBC) Count 20.8 thou/uL (4.8-10.8)
[2022-05-10 02:57] LABS: ALT (SGPT) 63 U/L (8-55); AST (SGOT) 152 U/L (5-34); Albumin 3.7 g/dL (3.4-4.8); Alkaline Phosphatase 106 U/L (40-110); Anion Gap 19 mmol/L (10-20); BUN (Urea Nitrogen) 85 mg/dL (8.4-25.7); Bilirubin, Total 7.5 mg/dL (0.2-1.2); Calc. Creatinine Clearance 27 mL/min (70-130); Carbon Dioxide 21 mmol/L (23-31); Chloride 110 mmol/L (98-107); Estimated GFR 21; Globulin 2.1 g/dL (2.4-3.5); Glucose 141 mg/dL (80-115); Magnesium 2.9 mg/dL (1.6-2.6); Potassium 5.8 mmol/L (3.5-5.1); Protein, Total 5.8 g/dL (5.8-8.1); Sodium 144 mmol/L (136-145)
[2022-05-10 03:04] LABS: Phosphorus 7.1 mg/dL (2.3-4.7)
[2022-05-10] MEDS: NOREPINEPHRINE 8 MG/250 ML-D5W 250 ML IVPB SCH ×6 (03:04→20:17)
[2022-05-10] MEDS ORDERED: Insulin Regular 300 UNITS/3 ML VIAL SC SCH (03:30)
[2022-05-10] MEDS ORDERED: Protamine Sulfate 50 MG/5 ML VIAL SLOW IVP SCH (04:20)
[2022-05-10 07:13] LABS: Actual Bicarbonate (HCO3a) 23.2 mEq/L (22-28); Calcium, Ionized (arterial) 1.12 mmol/L (1.12-1.30); Carboxyhemoglobin (COHb) 0.3 gm% (0.0-3.0); Hemoglobin (Hb) 8.5 g/dL (14.0-18.0); O2 Tension (PaO2), arterial 82.9 mmHg (> 80.0)
[2022-05-10 07:18] LABS: CO2 Tension 70.2 mmHg (35.0-45.0); Puncture Site Arterial Line; pH, Arterial 7.14 (7.35-7.45)
[2022-05-10 08:11] VITALS: BMI 28.1
[2022-05-10 08:44] LABS: Hemoglobin 7.9 g/dL (14.0-18.0); Mean Corpuscular HGB CONC 29.7 g/dL (32.0-36.0); Mean Corpuscular Hemoglobin 27.9 pg (27.0-31.0); Mean Corpuscular Volume 93.8 fl (78.0-98.0); Mean Platelet Volume 10.6 fL (7.4-10.4); Platelet Count 605 thou/uL (130-400); RBC Distribution Width 24.4 % (11.5-14.5); Red Blood Cell (RBC) Count 2.83 mill/uL (4.70-6.10); White Blood Cell (WBC) Count 30.3 thou/uL (4.8-10.8)
[2022-05-10 08:46] LABS: INR-International Normal Ratio 1.5; PTT 48.5 sec (22.9-36.1); Prothrombin Time 18.4 sec (12.0-14.7)
[2022-05-10 08:48] LABS: Lactic Acid 1.9 mmol/L (0.5-2.2)
[2022-05-10 08:53] LABS: Anion Gap 18 mmol/L (10-20); BUN (Urea Nitrogen) 91 mg/dL (8.4-25.7); Calc. Creatinine Clearance 24 mL/min (70-130); Calcium 8.1 mg/dL (7.8-10.44); Carbon Dioxide 21 mmol/L (23-31); Chloride 109 mmol/L (98-107); Estimated GFR 18; Glucose 208 mg/dL (80-115); Phosphorus 7.8 mg/dL (2.3-4.7); Potassium 5.8 mmol/L (3.5-5.1); Sodium 142 mmol/L (136-145)
[2022-05-10 09:12] LABS: Vancomycin, Trough 16.1 ug/mL
[2022-05-10] MEDS ORDERED: Heparin 10,000 UNITS/ 10 ML VIAL ONE (09:20)
[2022-05-10 09:51] LABS: Anisocytosis SLIGHT = 6-15 cells (100X) (0-5/hpf); Band 12 % (5-11); Burr Cells SLIGHT = 2-5 cells (100X) (0-1/hpf); Hypochromia MODERATE=16-30 cells (100X) (0-5/hpf); Large Platelets SLIGHT; Lymphocytes 4 % (21-51); MDiff Complete? YES; Myelocyte 1 % (0-0); Neutrophil 83 % (42-75); Nucleated RBC 20 % (0); Platelet Morphology Comment Appears Increased; Polychromasia SLIGHT = 2-3 cells (100X) (0-2/hpf); Target Cells SLIGHT = 2-5 cells (100X) (0-1/hpf)
[2022-05-10] MEDS: MINERAL OIL/WHITE PETROLATUM 3.5 GM TUBE EA EYE PRN (10:05)
[2022-05-10] MEDS: Pantoprazole 40 MG VIAL IVP SCH (10:06)
[2022-05-10] MEDS: Senokot S 8.6-50 MG TAB PO SCH ×2 (10:36→21:27)
[2022-05-10] MEDS: Fleet Enema 133 ML BOT PR SCH (10:36)
[2022-05-10] MEDS: Polyethylene Glycol 3350 17 GM Packet PO SCH (10:36)
[2022-05-10] MEDS: VANCOMYCIN 1.25 GM/250 ML BAG 1.25 GM in Premix Bag 1 BAG IVPB SCH (10:37)
[2022-05-10] MEDS ORDERED: Vancomycin Dose by Levels Sliding Scale (Wt 71-99) FS SCH (10:45)
[2022-05-10] MEDS ORDERED: Vancomycin HCl 500 MG in Sodium Chloride 0.9% 100 ML IV SCH (11:00)
[2022-05-10 11:02] LABS: Clarity Cloudy (Clear); Leukocyte Unable to Interpret (Negative); Nitrite Unable to Interpret (Negative); Specific Gravity, Urine 1.022 (1.002-1.036); pH, Urine 5.5 (5.0-9.0)
[2022-05-10 11:03] LABS: Bilirubin Unable to Interpret (Negative); Blood, Urine Unable to Interpret (Negative); Glucose, Urine (Dipstick) Unable to Interpret mg/dL (Negative); Ketone, Urine Unable to Interpret mg/dL (Negative); Protein, Urine (Dipstick) Unable to Interpret mg/dL (Neg-Trace); Urobilinogen UNABLE TO INTERPRET mg/dL (Less than 2)
[2022-05-10 11:07] LABS: Bacteria/HPF 1+ HPF (None Seen); Squamous Epithelial None Seen HPF (0-3)
[2022-05-10] MEDS: Sodium Bicarbonate 140 MEQ in Dextrose 5% in Water 1,000 ML IV SCH ×3 (11:40→23:57)
[2022-05-10] MEDS: Fluconazole In NaCl,Iso-Osm 200 MG in Premix Bag 1 BAG IVPB SCH (13:20)
[2022-05-10 13:46] LABS: Hep B Surf Ag Non-Reactive S/CO (NonReactive)
[2022-05-10 13:47] LABS: HBSAg Index 0.29 S/CO (0-0.99)
[2022-05-10 18:32] LABS: ALT (SGPT) 575 U/L (8-55); AST (SGOT) 2057 U/L (5-34); Albumin 3.7 g/dL (3.4-4.8); Alkaline Phosphatase 144 U/L (40-110); Anion Gap 17 mmol/L (10-20); BUN (Urea Nitrogen) 81 mg/dL (8.4-25.7); Calc. Creatinine Clearance 25 mL/min (70-130); Calcium 7.9 mg/dL (7.8-10.44); Carbon Dioxide 24 mmol/L (23-31); Chloride 104 mmol/L (98-107); Estimated GFR 19; Globulin 1.9 g/dL (2.4-3.5); Glucose 173 mg/dL (80-115); Potassium 4.8 mmol/L (3.5-5.1); Protein, Total 5.6 g/dL (5.8-8.1); Sodium 140 mmol/L (136-145)
[2022-05-10] MEDS ORDERED: Sodium Bicarb 50 MEQ/50 ML Abboject 8.4% SYRINGE ONE (20:41)
[2022-05-10] MEDS ORDERED: EPINEPHrine 1 MG/ML AMP ONE (20:41)
[2022-05-10 20:56] LABS: Actual Bicarbonate (HCO3a) 24.5 mEq/L (22-28); Base Excess (BEa) -5.7 mEq/L (-2.0 to +3.0); Calcium, Ionized (arterial) 1.04 mmol/L (1.12-1.30); Carboxyhemoglobin (COHb) 0.4 gm% (0.0-3.0); Hemoglobin (Hb) 8.5 g/dL (14.0-18.0); Potassium - ABG Lab 5.27 mmol/L (3.70-5.30)
[2022-05-10 20:57] LABS: pH, Arterial 7.09 (7.35-7.45)
[2022-05-10 20:58] LABS: CO2 Tension 81.7 mmHg (35.0-45.0); O2 Tension (PaO2), arterial 57.2 mmHg (> 80.0)
[2022-05-10 21:04] LABS: ALV-art Gradient 553.675 mmHg (0-20)
[2022-05-10] MEDS: EPINEPHrine 4 MG in Dextrose 5% in Water 250 ML IV SCH (23:57)
[2022-05-11] MEDS: NOREPINEPHRINE 8 MG/250 ML-D5W 250 ML IVPB SCH ×2 (00:14→04:00)
[2022-05-11] MEDS: EPINEPHrine 4 MG in Dextrose 5% in Water 250 ML IV SCH (03:32)
[2022-05-11 03:53] LABS: ALT (SGPT) 659 U/L (8-55); AST (SGOT) 2226 U/L (5-34); Albumin 3.3 g/dL (3.4-4.8); Alkaline Phosphatase 134 U/L (40-110); Anion Gap 22 mmol/L (10-20); BUN (Urea Nitrogen) 93 mg/dL (8.4-25.7); Calc. Creatinine Clearance 21 mL/min (70-130); Calcium 7.5 mg/dL (7.8-10.44); Carbon Dioxide 21 mmol/L (23-31); Chloride 100 mmol/L (98-107); Estimated GFR 15; Globulin 1.9 g/dL (2.4-3.5); Glucose 200 mg/dL (80-115); Potassium 4.7 mmol/L (3.5-5.1); Protein, Total 5.2 g/dL (5.8-8.1); Sodium 138 mmol/L (136-145)
[2022-05-11 04:14] LABS: Band 20 % (5-11); Hemoglobin 7.5 g/dL (14.0-18.0); Hypochromia SLIGHT = 6-15 cells (100X) (0-5/hpf); Lymphocytes 7 % (21-51); MDiff Complete? YES; Mean Corpuscular HGB CONC 29.1 g/dL (32.0-36.0); Mean Corpuscular Hemoglobin 27.1 pg (27.0-31.0); Mean Corpuscular Volume 93.1 fl (78.0-98.0); Monocytes 1 % (0-10); Neutrophil 72 % (42-75); Nucleated RBC 28 % (0); Platelet Count 507 thou/uL (130-400); Platelet Morphology Comment Appears Increased; Polychromasia SLIGHT = 2-3 cells (100X) (0-2/hpf); RBC Distribution Width 24.1 % (11.5-14.5); Red Blood Cell (RBC) Count 2.74 mill/uL (4.70-6.10); Target Cells SLIGHT = 2-5 cells (100X) (0-1/hpf); White Blood Cell (WBC) Count 24.4 thou/uL (4.8-10.8)
[2022-05-11 05:01] VITALS: TEMP 98.9
[2022-05-11] MEDS: Sodium Bicarbonate 140 MEQ in Dextrose 5% in Water 1,000 ML IV SCH (06:37)
[2022-05-11] MEDS ORDERED: Calcium Chloride 1 GM/10 ML Abboject SYRINGE IVP SCH (06:45)
== END 2022-05-11 07:10 | disposition expired | DRG 957 ==
LOC: ERS 08:48 → CCL 09:52 → CCU 10:53 → EEVIPCON 10:53
PROVIDERS: ADMIT Surgery; ATTEND Surgery
PROC: 07QP0ZZ Repair Spleen, Open Approach (ICD-10-PCS; principal; 2022-05-01)
PROC: 0FQ20ZZ Repair Left Lobe Liver, Open Approach (ICD-10-PCS; 2022-05-01)
PROC: 0CQ10ZZ Repair Lower Lip, Open Approach (ICD-10-PCS; 2022-05-01)
PROC: 0DCW0ZZ Extirpation of Matter from Peritoneum, Open Approach (ICD-10-PCS; 2022-05-01)
PROC: 30233N1 Transfusion of Nonautologous Red Blood Cells into Peripheral Vein, Percutaneous Approach (ICD-10-PCS; 2022-05-01)
PROC: 30233K1 Transfusion of Nonautologous Frozen Plasma into Peripheral Vein, Percutaneous Approach (ICD-10-PCS; 2022-05-01)
PROC: 30233M1 Transfusion of Nonautologous Plasma Cryoprecipitate into Peripheral Vein, Percutaneous Approach (ICD-10-PCS; 2022-05-01)
PROC: 6A550Z2 Pheresis of Platelets, Single (ICD-10-PCS; 2022-05-01)
PROC: 3E033XZ Introduction of Vasopressor into Peripheral Vein, Percutaneous Approach (ICD-10-PCS; 2022-05-01)
PROC: 05HY33Z Insertion of Infusion Device into Upper Vein, Percutaneous Approach (ICD-10-PCS; 2022-05-01)
PROC: 5A1955Z Respiratory Ventilation, Greater than 96 Consecutive Hours (ICD-10-PCS; 2022-05-01)
PROC: 0DCW0ZZ Extirpation of Matter from Peritoneum, Open Approach (ICD-10-PCS; 2022-05-02)
PROC: 04L93DZ Occlusion of Right Renal Artery with Intraluminal Device, Percutaneous Approach (ICD-10-PCS; 2022-05-02)
PROC: B4101ZZ Fluoroscopy of Abdominal Aorta using Low Osmolar Contrast (ICD-10-PCS; 2022-05-02)
PROC: 4A023N8 Measurement of Cardiac Sampling and Pressure, Bilateral, Percutaneous Approach (ICD-10-PCS; 2022-05-02)
PROC: B2111ZZ Fluoroscopy of Multiple Coronary Arteries using Low Osmolar Contrast (ICD-10-PCS; 2022-05-02)
PROC: 04HY32Z Insertion of Monitoring Device into Lower Artery, Percutaneous Approach (ICD-10-PCS; 2022-05-02)
PROC: 06H03DZ Insertion of Intraluminal Device into Inferior Vena Cava, Percutaneous Approach (ICD-10-PCS; 2022-05-02)
PROC: 0DHA7UZ Insertion of Feeding Device into Jejunum, Via Natural or Artificial Opening (ICD-10-PCS; 2022-05-04)
PROC: 3E0M05Z Introduction of Adhesion Barrier into Peritoneal Cavity, Open Approach (ICD-10-PCS; 2022-05-04)
PROC: 04HY32Z Insertion of Monitoring Device into Lower Artery, Percutaneous Approach (ICD-10-PCS; 2022-05-09)
PROC: 06HY33Z Insertion of Infusion Device into Lower Vein, Percutaneous Approach (ICD-10-PCS; 2022-05-09)
PROC: 0BCJ8ZZ Extirpation of Matter from Left Lower Lung Lobe, Via Natural or Artificial Opening Endoscopic (ICD-10-PCS; 2022-05-09)
PROC: 0BCC8ZZ Extirpation of Matter from Right Upper Lung Lobe, Via Natural or Artificial Opening Endoscopic (ICD-10-PCS; 2022-05-09)
PROC: 0BCF8ZZ Extirpation of Matter from Right Lower Lung Lobe, Via Natural or Artificial Opening Endoscopic (ICD-10-PCS; 2022-05-09)
PROC: 5A1D70Z Performance of Urinary Filtration, Intermittent, Less than 6 Hours Per Day (ICD-10-PCS; 2022-05-10)
PROC: 06HY33Z Insertion of Infusion Device into Lower Vein, Percutaneous Approach (ICD-10-PCS; 2022-05-10)
DX: S36.032A Major laceration of spleen, initial encounter (principal); I62.00 Nontraumatic subdural hemorrhage, unspecified; S22.5XXA Flail chest, initial encounter for closed fracture; Z66 Do not resuscitate; Z51.5 Encounter for palliative care; Z20.822 Contact with and (suspected) exposure to COVID-19; J69.0 Pneumonitis due to inhalation of food and vomit; S32.492A Other specified fracture of left acetabulum, initial encounter for closed fracture; J96.00 Acute respiratory failure, unspecified whether with hypoxia or hypercapnia; S36.116A Major laceration of liver, initial encounter; S37.061A Major laceration of right kidney, initial encounter; S32.82XA Multiple fractures of pelvis without disruption of pelvic ring, initial encounter for closed fracture; S72.431A Displaced fracture of medial condyle of right femur, initial encounter for closed fracture; S02.32XA Fracture of orbital floor, left side, initial encounter for closed fracture; S02.40FA Zygomatic fracture, left side, initial encounter for closed fracture; S02.19XA Other fracture of base of skull, initial encounter for closed fracture; S37.021A Major contusion of right kidney, initial encounter; S36.428A Contusion of other part of small intestine, initial encounter; D62 Acute posthemorrhagic anemia; E87.21 Acute metabolic acidosis; S27.0XXA Traumatic pneumothorax, initial encounter; N17.9 Acute kidney failure, unspecified; S27.322A Contusion of lung, bilateral, initial encounter; E87.0 Hyperosmolality and hypernatremia; R57.8 Other shock; S01.511A Laceration without foreign body of lip, initial encounter; W13.2XXA Fall from, out of or through roof, initial encounter; S02.2XXA Fracture of nasal bones, initial encounter for closed fracture; I71.40 Abdominal aortic aneurysm, without rupture, unspecified; E86.9 Volume depletion, unspecified; T79.6XXA Traumatic ischemia of muscle, initial encounter; E78.00 Pure hypercholesterolemia, unspecified; D72.823 Leukemoid reaction; K76.89 Other specified diseases of liver; E87.6 Hypokalemia; R74.01 Elevation of levels of liver transaminase levels; D75.839 Thrombocytosis, unspecified; E87.5 Hyperkalemia; I46.9 Cardiac arrest, cause unspecified; Z78.1 Physical restraint status; Z79.899 Other long term (current) drug therapy
CPT/HCPCS: 31500; 31624; 36245; 36246; 36251; 36415; 36416; 36430; 36556; 36600; 37191; 37244; 51702; 70450; 70486; 71045; 71250; 71260; 72125; 72170; 74018; 74177; 75726; 75736; 80048; 80053; 80076; 80202; 80306; 80307; 81001; 81003; 81015; 82533; 82550; 82805; 83605; 83735; 83880; 84100; 84145; 84484; 85025; 85060; 85384; 85610; 85730; 86850; 86900; 86901; 87040; 87070; 87086; 87205; 87340; 87811; 88305; 90471; 90714; 90935; 93005; 93010; 93306; 94002; 94003; 94640; 96374; 96375; 96376; 99152; 99153; C1713; C1758; C1769; C1776; C1880; C1884; C1887; C1889; C1894; C9113; G0257; G0390; J0171; J1450; J1642; J1644; J1650; J1720; J1815; J1940; J2001; J2185; J2250; J2370; J2405; J2543; J2704; J2720; J3010; J3370; J3475; J3480; J3490; J7030; J7042; J7050; J7070; J7120; J7620; P9012; P9016; P9035; P9045; P9047; P9048; P9059; Q9967; S0028; U0002